=== PATIENT | female | born 1980 | race American Indian/Alaskan Native ===

== ENCOUNTER 2017-04-04 01:57 | Emergency (ER) | payer OTHER ==
[2017-04-04 02:23] VITALS: BP 138/81
[2017-04-04 04:41] LABS: Basophils % (Auto) 0.4 % (0.0-1.8); Eosinophils % (Auto) 0.2 % (0.0-4.3); Hematocrit 41.2 % (30.3-42.9); Hemoglobin 13.2 gm/dl (10.1-14.3); Mean Corpuscular HGB Conc 32 % (30-34); Mean Corpuscular Hemoglobin 27 pg (28-32); Mean Corpuscular Volume 83 fl (79-97); Platelet Count 309 K/mm3 (140-440); Red Blood Count 4.97 M/mm3 (3.65-5.03); White Blood Count 10.5 K/mm3 (4.5-11.0)
[2017-04-04 05:06] LABS: Alanine Aminotransferase 24 units/L (7-56); Albumin 4.1 g/dL (3.9-5); Albumin/Globulin Ratio 1.1 %; Alkaline Phosphatase 67 units/L (35-129); Anion Gap 20 mmol/L; BUN/Creatinine Ratio 13; Blood Urea Nitrogen 9 mg/dL (7-17); Calcium 9.3 mg/dL (8.4-10.2); Carbon Dioxide 24 mmol/L (22-30); Chloride 100.9 mmol/L (98-107); Glucose 108 mg/dL (65-100); Lipase 25 units/L (13-60); Potassium 4.3 mmol/L (3.6-5.0); Sodium 141 mmol/L (137-145); Total Protein 7.8 g/dL (6.3-8.2)
[2017-04-04 07:47] LABS: Bacteria,Urine 1+ /HPF (Negative); Bilirubin,Urine NEG (Negative); Blood,Urine LG (Negative); Ketones,Urine NEG (Negative); Leukocyte Esterase,Urine NEG (Negative); Mucus,Urine 3+ /HPF; Nitrite,Urine NEG (Negative)
[2017-04-04 07:51] LABS: RBC,Urine > 182.0 /HPF (0.0-6.0)
[2017-04-04] MEDS ORDERED: MOTRIN PO ONE (10:40)
[2017-04-04] MEDS ORDERED: ZOFRAN ODT PO ONE (10:40)
--- NOTE | 2017-04-04 10:41 | Emergency Department Report ---
ED Female HPI - General Chief complaint: Abdominal Pain Stated complaint: FLANK PAIN Time Seen by Provider: 04/04/17 10:32 Source: patient Mode of arrival: Ambulatory Limitations: No Limitations - History of Present Illness Initial comments: 37-year-old female past medical history obesity presents with 2 days of right- sided intermittent flank pain. States that she has slightly darker colored urine than usual for her. States that yesterday she felt slightly nauseous. Primarily complaining of dull aching pain radiating from right flank to groin. States she has been eating and drinking without difficulty and is able to void urine without difficulty. Patient is awake alert and oriented 3. denies fevers or chills. Last menstrual period 03/08/17 Complaint: other (right flank pain) Onset/Timin -: days(s) Radiation: R flank Severity: moderate Severity scale (0 -10): 6 Quality: dull, aching Consistency: intermittent Are you Now?: No Last Menstrual Period: 03/08/17 EDC: 12/13/17 - Related Data Sexually active: Yes Previous Rx's Medication Instructions Recorded Last Taken Type Acetaminophen/Codeine [Tylenol 1 tab PO Q6H PRN #12 tab 04/04/17 Unknown Rx /Codeine # 3 tab] Naproxen 500 mg PO BID PRN #30 tablet 04/04/17 Unknown Rx Tamsulosin [Flomax] 0.4 mg PO QDAY #7 cap 04/04/17 Unknown Rx Allergies Allergy/AdvReac Type Severity Reaction Status Date / Time No Known Allergies Allergy Unverified 04/04/17 03:01 ED Review of Systems ROS: Stated complaint: FLANK PAIN Other details as noted in HPI Constitutional: denies: chills, fever Eyes: denies: eye pain, eye discharge, vision change ENT: denies: ear pain, throat pain Respiratory: denies: cough, shortness of breath, wheezing Cardiovascular: denies: chest pain, palpitations Endocrine: no symptoms reported Gastrointestinal: denies: abdominal pain, nausea, diarrhea Genitourinary: other (slightly dark colored urine as per patient). denies: urgency, dysuria, discharge Musculoskeletal: back pain (intermittent right-sided flank pain for 2 days). denies: joint swelling, arthralgia Skin: denies: rash, lesions Neurological: denies: headache, weakness, paresthesias Psychiatric: denies: anxiety, depression Hematological/Lymphatic: denies: easy bleeding, easy bruising ED Past Medical Hx - Past Medical History Previous Medical History?: No - Surgical History Past Surgical History?: No - Social History Smoking Status: Never Smoker - Medications Home Medications: Home Medications Medication Instructions Recorded Confirmed Last Taken Type Acetaminophen/Codeine [Tylenol 1 tab PO Q6H PRN #12 tab 04/04/17 Unknown Rx /Codeine # 3 tab] Naproxen 500 mg PO BID PRN #30 tablet 04/04/17 Unknown Rx Tamsulosin [Flomax] 0.4 mg PO QDAY #7 cap 04/04/17 Unknown Rx ED Physical Exam - General Limitations: No Limitations General appearance: alert, in no apparent distress - Head Head exam: Present: atraumatic, normocephalic - Eye Eye exam: Present: normal appearance, PERRL, EOMI - ENT ENT exam: Present: mucous membranes moist - Neck Neck exam: Present: normal inspection - Respiratory Respiratory exam: Present: normal lung sounds bilaterally. Absent: respiratory distress - Cardiovascular Cardiovascular Exam: Present: regular rate, normal rhythm. Absent: systolic murmur, diastolic murmur, rubs, gallop - GI/Abdominal GI/Abdominal exam: Present: soft (abdomen soft nontender nondistended on exam), normal bowel sounds - Extremities Exam Extremities exam: Present: normal inspection - Back Exam Back exam: Present: normal inspection - Neurological Exam Neurological exam: Present: alert, oriented X3 - Psychiatric Psychiatric exam: Present: normal affect, normal mood - Skin Skin exam: Present: warm, dry, intact, normal color. Absent: rash ED Course Vital Signs 04/04/17 02:20 Temperature 97.8 F Pulse Rate 89 Respiratory 18 Rate Blood Pressure 138/81 O2 Sat by Pulse 100 Oximetry ED Medical Decision Making - Lab Data Result diagrams: 04/04/17 04:22 04/04/17 04:22 - Medical Decision Making A/P: Right-sided renal colic, kidney stone 1-naproxen when necessary, course of Flomax 2-renal function normal as per BMP, patient is voiding urine without difficulty , is tolerating by mouth fluid and food without difficulty 3-pt has normal vital signs before discharge, afebrile 4-case discussed with before dc 5- I advised the patient to follow up with urology and provided her with referral information. I advised her to return to the ED for any nausea vomiting fever chills and inability to void urine and/or increased flank pain or suprapubic pain. Patient's pain has significantly improved before discharge. Has no pain upon my discussion with her before discharge. Stated that she understood my instructions. I emphasized the importance of follow-up with urology to the patient. She stated she would call for a follow-up appointment this week. Critical care attestation.: If time is entered above; I have spent that time in minutes in the direct care of this critically ill patient, excluding procedure time. ED Disposition Clinical Impression: Renal colic on right side Disposition: - TO HOME OR SELFCARE Is pt being admited?: No Does the pt Need Aspirin: No Condition: Stable Instructions: Renal Colic (ED), Kidney Stones (ED), Flank Pain (ED) Prescriptions: Acetaminophen/Codeine [Tylenol /Codeine # 3 tab] 1 tab PO Q6H PRN #12 tab PRN Reason: Pain Naproxen 500 mg PO BID PRN #30 tablet PRN Reason: Pain Tamsulosin [Flomax] 0.4 mg PO QDAY #7 cap Referrals: [facility] [Provider Group] - 3-5 Days [facility] [Outside] - 3-5 Days KALANI MCALLISTER MD [Referring] - 3-5 Days Forms: Work/School Release Form(ED) Time of Disposition: 13:28
--- NOTE | 2017-04-04 12:07 | Cat Scan Report ---
CT ABDOMEN AND PELVIS WITHOUT CONTRAST INDICATION: Renal colic. Evaluate for right-sided kidney stone. COMPARISON: None similar at this institution. FINDINGS: Noncontrast abdomen and pelvis CT performed. LUNG BASES: Unremarkable. ABDOMEN: Please note that sensitivity to detect small visceral lesions is limited due to the absence of intravenous or oral contrast. At least 5 peripherally calcified gallstones measure up to approximately 1.5 cm in size, some containing air. Otherwise grossly unremarkable unenhanced liver, spleen, pancreas, adrenals, aorta and IVC. No ascites or significant adenopathy. Nonopacified GI tract evaluation limited, though grossly nonobstructive. Normal appendix. Kidneys demonstrate no radiopaque renal calculi. However, slight right renal collecting system fullness/hydronephrosis suspected superiorly. Greater dilatation of the right renal pelvis and the ureter also noted, extending into the pelvis. As on axial image 194, series 2, right proximal ureter measures 30 HU, contents not excluded hemorrhagic. PELVIS: Though right distal ureter difficult to accurately track, it may lead to approximately 6 x 8 mm right distal ureteral calculus as on axial image 319, series 2. Few other small pelvic phleboliths as well. Uterus, adnexa/ovaries, urinary bladder and rectosigmoid containing stool otherwise within normal limits. No free fluid or significant adenopathy. No acute osseous process. Approximately 2 cm L3 vertebral body hemangioma on the left. CONCLUSION: 1. Somewhat linear, 6-8 mm right distal ureteral calculus possible with mild hydroureteronephrosis, as detailed above on this limited, unenhanced exam. No additional radiopaque nephrolithiasis noted. Please correlate. 2. Other findings, including cholelithiasis. Thank you for the opportunity to participate in this patient's care.
== END 2017-04-04 13:39 | disposition home or self-care (01) ==
LOC: ED 01:57
DX: N23 Unspecified renal colic (principal)
CPT/HCPCS: 36415; 74176; 80053; 81001; 81025; 82550; 83690; 85025; Q0162